=== PATIENT | female | born 1985 | race Caucasian/White ===

== ENCOUNTER → 2017-02-19 | Outpatient (CLI) | payer BC | LOC: FIMAGING 07:26 | PROVIDERS: ATTEND Midwife | DX: N92.6 Irregular menstruation, unspecified (principal) ==

== ENCOUNTER 2018-01-15 15:24 | Emergency (ER) | payer BC ==
--- NOTE | 2018-01-15 15:41 | EDPHY ---
H & P Stated Complaint: low back pain radiates down right leg and into groin. Time Seen by Provider: 01/15/18 15:40 HPI/ROS: HPI: This is a 32-year-old female who presents with Chief Complaint: low back pain radiates down right leg and into groin. Location: Lower back Quality: Pain Duration: Starting approximately 1-3 hours ago Signs and Symptoms: No bleeding, + radiation from lower back into right buttock and into right groin and perineum area, no numbness, no weakness, no tingling, no incontinence, no decreased range of motion, no swelling, no pain, no fever Timing: Acute Severity: Moderate to severe Context: Patient is generally healthy, training for a marathon, ran approximately 21 miles today which is typical for her weekend run presents with sudden onset of right-sided lower back pain that is moderate in nature, radiating into right buttock and into her right inguinal groin area and into her right perineum. She denies any paresthesias/weakness/decreased range of motion. She reports that certain ranges of motion increase the pain. She has not had any prior pain episodes like this before. Denies incontinence/urinary symptoms/fever. Has not tried any [id number] medications. Modifying Factors: None Comment: ROS: see HPI Constitutional: No fever, no chills, no weight loss Eyes: No blurred vision Respiratory: No shortness of breath, no cough Cardiovascular: No chest pain Gastrointestinal: No nausea, no vomiting no diarrhea Genitourinary: No dysuria Extremities: No myalgias Neurologic: No weakness, no numbness Skin: No rashes Hematologic: No bruising, no bleeding MEDICAL/SURGICAL/SOCIAL HISTORY: Medical history: Generally healthy. Does not take any regular medications. Surgical history: Denies Social history: . Active lifestyle. CONSTITUTIONAL: Physically fit adult female, awake and alert, no obvious distress HEENT: Atraumatic and normocephalic. NECK: supple, no midline tenderness, flexion 45 degrees, extension 45 degrees, right and left lateral flexion 45 degrees. No meningismus. Cardiovascular: Normal S1/S2, regular rate, regular rhythm, without murmur rub or gallop. PULMONARY/CHEST: Symmetrical and nontender. no crepitus. Clear to auscultation bilaterally. Good air movement. No accessory muscle usage. ABDOMEN: Soft, nondistended, nontender, no ecchymosis. PELVIC: no pain with rocking; bilateral hips flexion 125 degrees, extension 30 degrees, with no pain internal rotation and no pain external rotation. Mild reproducible right inguinal tenderness; no mass palpable. BACK: No midline tenderness, no paraspinous spasm, mild reproducible SI joint tenderness; deep tendon reflexes 2/2, no pain with straight leg raise, No foot drop. Achilles reflexes are equal bilaterally. Able to walk on heels and toes without difficulty. Excellent range of motion of flexion/extension/bilateral lateral rotation. EXTREMITIES: 2/2 pulses, strength 5/5, DIP/PIP/MCP flexion/extension intact with good light touch sensation. no deformities, no clubbing, no cyanosis or edema. NEUROLOGICAL: no focal neuro deficits. GCS 15. Light touch sensation intact. SKIN: Warm and dry, no erythema. no rash. Good capillary refill. Source: Patient Exam Limitations: No limitations - Personal History LMP (Females 10-55): IUD In Place Current Tetanus Diphtheria and Acellular Pertussis (TDAP): Yes - Medical/Surgical History Hx Asthma: No Hx Chronic Respiratory Disease: No Hx Diabetes: No Hx Cardiac Disease: No Hx Renal Disease: No Hx Cirrhosis: No Hx Alcoholism: No Hx HIV/AIDS: No Hx Splenectomy or Spleen Trauma: No Other PMH: none - Social History Smoking Status: Never smoked Constitutional: Initial Vital Signs Temperature (C) 36.6 C 01/15/18 15:28 Heart Rate 83 01/15/18 15:28 Respiratory Rate 16 01/15/18 15:28 Blood Pressure 127/85 H 01/15/18 15:28 O2 Sat (%) 98 01/15/18 15:28 O2 Delivery Mode Room Air Allergies/Adverse Reactions: No Known Allergies Allergy (Unverified 01/15/18 15:28) Home Medications: Medication Instructions Recorded Claritin-D 12 Hour Tablet 01/15/18 Cyclobenzaprine [Flexeril 10 MG 10 mg PO TID PRN #12 tab 01/15/18 (*)] Zolpidem Tartrate 01/15/18 methylPREDNISolone [Medrol Dose 1 each PO AD #0 ea 01/15/18 Tanner] Medical Decision Making ED Course/Re-evaluation: Due to perineal and groin numbness out of proportion for the patient; it was decided to order MRI of the lumbar spine. Given p.o. Flexeril and p.o. Decadron as patient politely declines IV administration for IV access. 1640: Called by radiologist who advised that there is a small L5-S1 disc bulge that is compressing mildly on the left S1 nerve root Patient ambulatory without neurological deficit. Advised orthopedic follow-up if symptoms persist No signs of neurovascular compromise/tenting of skin/compartment syndrome/ extremities and joints examined above and below area of concern and are neurovascularly intact. This patient was seen under the supervision of my secondary supervising physician. I evaluated care for this patient independently. Discussed this patient with Dr. Castillo who did not see the patient. Differential Diagnosis: Back pain including but not limited to muscular pain, herniated disc, spine fracture, intra-abdominal causes and urinary tract infection. - Data Points Medications Given: Discontinued Medications Cyclobenzaprine HCl (Flexeril) 10 mg PO EDNOW ONE Stop: 01/15/18 15:51 Last Admin: 01/15/18 15:53 Dose: 10 mg Dexamethasone (Decadron) 8 mg PO EDNOW ONE Stop: 01/15/18 15:51 Last Admin: 01/15/18 15:53 Dose: 8 mg Ibuprofen (Motrin) 400 mg PO EDNOW ONE Stop: 01/15/18 16:33 Last Admin: 01/15/18 16:38 Dose: 400 mg Departure - Departure Disposition: Home, Routine, Self-Care Clinical Impression: Bulging of lumbar intervertebral disc Condition: Good Instructions: Low Back Strain (ED), Groin Pain (ED), Hip Pain (ED) Additional Instructions: Please avoid any long distance runs or strenuous activity until all symptoms have resolved. Start Medrol dose taper. Use Tylenol and/or ibuprofen as needed for pain. If symptoms persist greater than 7-10 days, follow-up with Orthopedics for further evaluation. Return to the ER immediately if you have new or worsening back pain, fevers/ chills, flu like symptoms, incontinence or inability to urinate or defecate, weakness, paralysis, or any other symptom that concerns you. Referrals: Ramila Arceo MD [Primary Care Provider] - As per Instructions Prescriptions: Cyclobenzaprine [Flexeril 10 MG (*)] 10 mg PO TID PRN #12 tab PRN Reason: Spasms methylPREDNISolone [Medrol Dose Tanner] 1 each PO AD #0 ea
[2018-01-15] MEDS ORDERED: DEXAMETHASONE 4 MG TAB PO ONE (15:50)
[2018-01-15] MEDS ORDERED: CYCLOBENZAPRINE 10 MG TAB PO ONE (15:50)
[2018-01-15 16:31] VITALS: BP 121/82; PULSE 73; RESP 18; O2SAT 97
[2018-01-15] MEDS ORDERED: IBUPROFEN 200 MG TAB PO ONE (16:32)
[2018-01-15 17:01] VITALS: TEMP 98.6
== END 2018-01-15 17:01 | disposition home or self-care (01) ==
DX: M51.26 Other intervertebral disc displacement, lumbar region (principal)

== ENCOUNTER → 2018-06-30 | Outpatient (CLI) | payer BC | LOC: FIMAGING 13:01 | PROVIDERS: ATTEND Family Medicine | DX: Z13.820 Encounter for screening for osteoporosis (principal); Z87.312 Personal history of (healed) stress fracture ==